=== PATIENT | male | born 1950 | race African-American/Black ===

== ENCOUNTER 2018-06-18 16:56 | Inpatient (IN) | payer OTHER ==
[2018-06-18 17:28] VITALS: BMI 31.0
--- NOTE | 2018-06-18 21:53 | HP ---
CIWA Score Nausea/Vomitin-Mild Nausea/No Vomiting Muscle Tremors: 4-Moderate,w/Arms Extend Anxiety: 3 Agitation: 3 Paroxysmal Sweats: 3 Orientation: 0-Oriented Tacttile Disturbances: 1-Very Mild Itch/Numbness Auditory Disturbances: 0-None Visual Disturbances: 0-None Headache: 0-None Present CIWA-Ar Total Score: 15 - Admission Criteria OASAS Guidelines: Admission for Medically Managed Detox: Requires at least one of the followin. CIWA greater than 12 2. Seizures within the past 24 hours 3. Delirium tremens within the past 24 hours 4. Hallucinations within the past 24 hours 5. Acute intervention needed for co occurring medical disorder 6. Acute intervention needed for co occurring psychiatric disorder 7. Severe withdrawal that cannot be handled at a lower level of care (continued vomiting, continued diarrhea, abnormal vital signs) requiring intravenous medication and/or fluids 8. Admission ROS [facility] Chief Complaint: Alcohol withdrawal symptoms Allergies/Adverse Reactions: Allergies Allergy/AdvReac Type Severity Reaction Status Date / Time No Known Allergies Allergy Verified 06/18/18 21:19 History of Present Illness: 67 years old male with a long history of alcohol dependence is seeking admission to detox. Patient has been to previous detox and reports insignificant period of sobriety. He has medical history of hypertension and anxiety. He denies suicidal ideation at this time. This is his first admission to [facility]. Exam Limitations: No Limitations - Ebola screening Have you traveled outside of the country in the last 21 days: No (N) Have you had contact with anyone from an Ebola affected area: No Have you been sick,other than usual withdrawal symptoms: No Do you have a fever: No - Review of Systems Constitutional: Chills, Malaise, Changes in sleep, Weakness EENT: reports: Nose Congestion Respiratory: reports: No Symptoms reported Cardiac: reports: No Symptoms Reported GI: reports: Nausea, Poor Appetite, Poor Fluid Intake, Abdominal cramping : reports: No Symptoms Reported Musculoskeletal: reports: Back Pain Integumentary: reports: Dryness, Flushing Neuro: reports: Headache, Tremors Endocrine: reports: No Symptoms Reported Hematology: reports: No Symptoms Reported Psychiatric: reports: Mood/Affect Appropiate, Orientated x3, Anxious Other Systems: Reviewed and Negative Patient History - Patient Medical History Hx Anemia: No Hx Asthma: No Hx Chronic Obstructive Pulmonary Disease (COPD): No Hx Cardiac Disorders: No Hx Congestive Heart Failure: No Hx Hypertension: Yes (Norvasc ) Hx Hypercholesterolemia: No Hx Pacemaker: No HX Cerebrovascular Accident: No Hx Seizures: No Hx Dementia: No Hx Diabetes: No Hx Gastrointestinal Disorders: No Hx Liver Disease: No Hx Genitourinary Disorders: No Hx Sexually Transmitted Disorders: No Hx Renal Disease (ESRD): No Hx Thyroid Disease: No Hx Human Immunodeficiency Virus (HIV): No (Negative December 2018) Hx Hepatitis C: No Hx Depression: No Hx Suicide Attempt: No Hx Bipolar Disorder: No Hx Schizophrenia: No Other Medical History: Anxiety - Not on medication - Patient Surgical History Past Surgical History: Yes Hx Neurologic Surgery: No Hx Cataract Extraction: No Hx Cardiac Surgery: No Hx Lung Surgery: No Hx Breast Surgery: No Hx Breast Biopsy: No Hx Abdominal Surgery: No Hx Appendectomy: No Hx Cholecystectomy: No Hx Genitourinary Surgery: No Hx Section: No Hx Orthopedic Surgery: No Other Surgical History: KNEE SURGERY - 2017 Anesthesia Reaction: No - PPD History Previous Implant?: Yes Documented Results: Negative w/o proof Implanted On Prior [facility] Admission?: No PPD to be Administered?: Yes - Reproductive History Patient is a Female of Child Bearing Age (11 -55 yrs old): No (male) - Smoking Cessation Smoking history: Never smoked Have you smoked in the past 12 months: No Aproximately how many cigarettes per day: 0 Hx Chewing Tobacco Use: No Initiated information on smoking cessation: No - Substances Abused Alcohol Route: Oral Frequency: Daily Amount used: LIQUOR- 2 PINTS Age of first use: 27 Date of Last Use: 06/18/18 Family Disease History - Family Disease History Family History: Denies Admission Physical Exam [facility] - Vital Signs Vital Signs: Vital Signs - 24 hr 06/18/18 17:26 Temperature 97.1 F L Pulse Rate 85 Respiratory 18 Rate Blood Pressure 143/86 - Physical General Appearance: Yes: Moderate Distress, Tremorous, Irritable, Sweating HEENTM: Yes: EOMI, Normal ENT Inspection, Normal Voice, JULIETTE Respiratory: Yes: Lungs Clear, Normal Breath Sounds, No Respiratory Distress Neck: Yes: Supple Breast: Yes: Breast Exam Deferred Cardiology: Yes: Regular Rhythm, Regular Rate Abdominal: Yes: Normal Bowel Sounds Genitourinary: Yes: Within Normal Limits Back: Yes: Normal Inspection Musculoskeletal: Yes: Back pain Extremities: Yes: Tremors Neurological: Yes: behavioral instructor II-XII NML intact, Alert, Normal Mood/Affect Integumentary: Yes: Warm Lymphatic: Yes: Within Normal Limits - Diagnostic (1) Hypertension Current Visit: Yes Status: Chronic Qualifiers: Hypertension type: essential hypertension Qualified Code(s): I10 - Essential (primary) hypertension (2) Anxiety Current Visit: Yes Status: Chronic (3) Alcohol dependence, uncomplicated Current Visit: Yes Status: Chronic Cleared for Admission [facility] - Detox or Rehab [facility] Level of Care: Medically Managed Detox Regimen/Protocol: Librium [facility] Breath Alcohol Content Breath Alcohol Content: 0.046 Urine Drug Screen - Results Drug Screen Negative: No Urine Drug Screen Results: MET-Methamphetamine
[2018-06-18] MEDS ORDERED: ACETAMINOPHEN 325 MG TABLET (FP) PO PRN (22:02)
[2018-06-18] MEDS ORDERED: P-EPHED 60MG/TRIPROLIDI 2.5MG TABLET PO PRN (22:02)
[2018-06-18] MEDS ORDERED: guaiFENesin/D-METHORPHAN HB 10 ML UNIT-DOSE CUPS PO PRN (22:02)
[2018-06-18] MEDS ORDERED: MAGNESIUM CITRATE 300 ML BOTTLE PO PRN (22:02)
[2018-06-18] MEDS ORDERED: MAG HYDROX/AL HYDROX/SIMETH 30 ML UNIT-DOSE CUP PO PRN (22:02)
[2018-06-18] MEDS ORDERED: LOPERAMIDE HCL 2 MG CAPSULE PO PRN (22:02)
[2018-06-18] MEDS ORDERED: IBUPROFEN 400 MG TABLET (FP) PO PRN (22:02)
[2018-06-18] MEDS ORDERED: MAGNESIUM HYDROX 2400MG/30ML ORAL SUSPENSION 30 ML CUP PO PRN (22:02)
[2018-06-19] MEDS: MELATONIN 5 MG TABLETS PO PRN ×2 (00:10→22:12)
[2018-06-19] MEDS: chlordiazePOXIDE HCL 25 MG CAPSULE PO SCH ×5 (00:10→22:11)
[2018-06-19] MEDS: amLODIPine BESYLATE 10 MG TABLET (FP) PO SCH (10:13)
[2018-06-19] MEDS: PRENATAL VITAMINS W/ FOLIC ACID TABLET (FP) PO SCH (10:14)
--- NOTE | 2018-06-19 10:35 | PN ---
[facility] CIWA - CIWA Score Nausea/Vomitin Muscle Tremors: 3 Anxiety: 1-Mildly Anxious Agitation: 2 Paroxysmal Sweats: 2 Orientation: 0-Oriented Tacttile Disturbances: 1-Very Mild Itch/Numbness Auditory Disturbances: 0-None Visual Disturbances: 0-None Headache: 1-Very Mild CIWA-Ar Total Score: 12 [facility] Progress Note (SOAP) Subjective: Shakes, anxiety, interrupted sleep Objective: 06/19/18 10:35 Vital Signs 06/19/18 06/19/18 06/19/18 03:30 06:39 09:15 Temperature 97.2 F L 98.1 F Pulse Rate 74 68 Respiratory 17 18 18 Rate Blood Pressure 119/64 125/69 Labs pending Assessment: 06/19/18 10:35 Withdrawal sx Plan: Continue detox
[2018-06-19 10:37] LABS: HEMATOCRIT 42.5 % (35.4-49); MCH 36.5 pg (25.7-33.7); MCHC 35.4 g/dl (32.0-35.9); MEAN CELL VOLUME 103.3 fl (80-96); MEAN PLT VOLUME 8.8 fl (7.5-11.1); PLATELET COUNT 215 K/MM3 (134-434); RBC 4.12 M/mm3 (4.00-5.60); RDW 14.1 % (11.9-15.9); WHITE BLOOD COUNT 7.1 K/mm3 (4.0-10.0)
[2018-06-19 11:14] LABS: ALBUMIN 3.1 g/dl (3.4-5.0); ALK PHOS 42 U/L (45-117); ANION GAP 10 MMOL/L (8-16); BILIRUBIN,TOTAL 0.8 mg/dL (0.2-1); BLOOD UREA NITROGEN 21 mg/dL (7-18); CALCIUM 8.7 mg/dL (8.5-10.1); CHLORIDE 108 mmol/L (98-107); CO2 28 mmol/L (21-32); CREATININE 1.2 mg/dL (0.55-1.3); GLUCOSE,RANDOM 82 mg/dL (74-106); POTASSIUM 3.2 mmol/L (3.5-5.1); SGOT/AST 17 U/L (15-37); SGPT/ALT 28 U/L (13-61); SODIUM 146 mmol/L (136-145)
[2018-06-19] MEDS: THIAMINE HCL 100 MG TABLET (FP) PO SCH (22:11)
[2018-06-19] MEDS: MENTHOL/PHENOL 1 EACH UD MM PRN (22:20)
[2018-06-20] MEDS: chlordiazePOXIDE HCL 25 MG CAPSULE PO PRN (00:34)
[2018-06-20] MEDS: chlordiazePOXIDE HCL 25 MG CAPSULE PO SCH ×2 (06:09→10:08)
[2018-06-20] MEDS: amLODIPine BESYLATE 10 MG TABLET (FP) PO SCH (10:08)
[2018-06-20] MEDS: PRENATAL VITAMINS W/ FOLIC ACID TABLET (FP) PO SCH (10:08)
--- NOTE | 2018-06-20 11:16 | PN ---
[facility] CIWA - CIWA Score Nausea/Vomitin-No Nausea/No Vomiting Muscle Tremors: None Anxiety: 0-No Anxiety, at Ease Agitation: 0-Normal Activity Paroxysmal Sweats: No Perspiration Orientation: 0-Oriented Tacttile Disturbances: 0-None Auditory Disturbances: 0-None Visual Disturbances: 0-None Headache: 0-None Present CIWA-Ar Total Score: 0 [facility] Progress Note (SOAP) Subjective: pt states he is feeling dizzy, thinks that the dose of librium maybe too high. Vital Signs - 24 hr 06/19/18 06/19/18 06/19/18 13:42 17:23 22:07 Temperature 97.0 F L 98.2 F 97.9 F Pulse Rate 88 78 68 Respiratory 18 18 16 Rate Blood Pressure 130/83 131/77 115/56 L 06/20/18 06/20/18 06/20/18 00:30 03:30 06:36 Temperature 96.1 F L Pulse Rate 65 Respiratory 18 18 18 Rate Blood Pressure 127/56 L 06/20/18 09:17 Temperature 98.2 F Pulse Rate 78 Respiratory 16 Rate Blood Pressure 124/82 Laboratory Tests 06/19/18 06/19/18 06/19/18 08:00 08:00 08:00 WBC 7.1 RBC 4.12 Hgb 15.0 Hct 42.5 MCV 103.3 H MCH 36.5 H MCHC 35.4 RDW 14.1 Plt Count 215 MPV 8.8 Sodium 146 H Potassium 3.2 L Chloride 108 H Carbon Dioxide 28 Anion Gap 10 BUN 21 H Creatinine 1.2 Creat Clearance w eGFR > 60 Random Glucose 82 Calcium 8.7 Total Bilirubin 0.8 AST 17 ALT 28 Alkaline Phosphatase 42 L Total Protein 6.0 L Albumin 3.1 L RPR Titer Nonreactive a/p: continue alcohol detox protocol; will decrease dose in 1/2 for librium high MCV- will give B12/folate low K- will give K replacement
[2018-06-20] MEDS ORDERED: chlordiazePOXIDE HCL 25 MG CAPSULE PO SCH (11:18)
[2018-06-20] MEDS: CYANOCOBALAMIN 1,000 MCG TABLET (FP) PO SCH (11:36)
[2018-06-20] MEDS: FOLIC ACID 1 MG TABLET (FP) PO SCH (11:36)
[2018-06-20] MEDS: POTASSIUM CHLORIDE TABS 20 MEQ TABLET.ER (FP) PO SCH (11:36)
[2018-06-20] MEDS: MENTHOL/PHENOL 1 EACH UD MM PRN (11:37)
[2018-06-20] MEDS ORDERED: chlordiazePOXIDE 5 MG CAPSULE PO SCH ×2 (17:00→23:00)
[2018-06-20] MEDS: THIAMINE HCL 100 MG TABLET (FP) PO SCH (22:14)
[2018-06-20] MEDS: chlordiazePOXIDE 5 MG CAPSULE PO SCH (22:14)
[2018-06-20] MEDS: MELATONIN 5 MG TABLETS PO PRN (22:15)
[2018-06-21] MEDS: chlordiazePOXIDE HCL 25 MG CAPSULE PO PRN (00:35)
[2018-06-21] MEDS: chlordiazePOXIDE 5 MG CAPSULE PO SCH ×4 (05:25→22:20)
[2018-06-21] MEDS: PRENATAL VITAMINS W/ FOLIC ACID TABLET (FP) PO SCH (10:31)
[2018-06-21] MEDS: POTASSIUM CHLORIDE TABS 20 MEQ TABLET.ER (FP) PO SCH (10:31)
[2018-06-21] MEDS: amLODIPine BESYLATE 10 MG TABLET (FP) PO SCH (10:32)
[2018-06-21] MEDS: CYANOCOBALAMIN 1,000 MCG TABLET (FP) PO SCH (10:32)
[2018-06-21] MEDS ORDERED: AZITHROMYCIN 250 MG TABLET PO ONE (10:32)
[2018-06-21] MEDS: FOLIC ACID 1 MG TABLET (FP) PO SCH (10:34)
--- NOTE | 2018-06-21 13:15 | PN ---
[facility] Progress Note (SOAP) Subjective: Diarrhea. Patient Reports a Sore Throat that has been getting progressively worse over the last 2-3 days. Patient also reports Nasal Congestion. Patient Denies difficulty Swallowing. Objective: PATIENT A & O X 3, OBSERVED AMBULATING ON UNIT. IN NO ACUTE DISTRESS. PATIENT AFEBRILE. NO ERYTHEMA OR EXUDATE NOTED ON VISUALIZATION OF UPPER PHARYNX. 06/21/18 13:10 Vital Signs Temperature 96.4 F L 06/21/18 13:09 Pulse Rate 75 06/21/18 13:09 Respiratory Rate 18 06/21/18 13:09 Blood Pressure 121/65 06/21/18 13:09 O2 Sat by Pulse Oximetry (%) Laboratory Tests 06/19/18 06/19/18 06/19/18 08:00 08:00 08:00 WBC 7.1 RBC 4.12 Hgb 15.0 Hct 42.5 MCV 103.3 H MCH 36.5 H MCHC 35.4 RDW 14.1 Plt Count 215 MPV 8.8 Sodium 146 H Potassium 3.2 L Chloride 108 H Carbon Dioxide 28 Anion Gap 10 BUN 21 H Creatinine 1.2 Creat Clearance w eGFR > 60 Random Glucose 82 Calcium 8.7 Total Bilirubin 0.8 AST 17 ALT 28 Alkaline Phosphatase 42 L Total Protein 6.0 L Albumin 3.1 L RPR Titer Nonreactive LABS NOTED. Assessment: 06/21/18 13:12 WITHDRAWAL SYMPTOMS. URI. Plan: CONTINUE DETOX. Z-PACK ORDERED. REMAINDER OF PRESCRIPTION SENT TO PATIENT'S PHARMACY ([facility], [place], [place]) FOR FOLLOW-UP AFTER DISCHARGE FROM DETOX UNIT. INCREASE DAILY PO FLUID INTAKE. PRN CEPASTAT LOZENGES AND PRN TYLENOL PO FOR THROAT DISCOMFORT.
--- NOTE | 2018-06-21 13:50 | CONSULT ---
[facility] Psychiatric Consult - Data Date of interview: 06/21/18 Admission source: [facility] Identifying data: This is a 67 years old male, father of four, on pension and SSI support, with a long history of alcohol dependence is seeking admission to detox reporting withdrawal symptoms.. Patient reports mild depressive symptoms, insomnia, denies psychiatric hospitalization history, denies suicidal, homicdial history. Substance Abuse History: Smoking history: Never smoked. Have you smoked in the past 12 months: No. Aproximately how many cigarettes per day: 0. Hx Chewing Tobacco Use: No. Initiated information on smoking cessation: No. - Substances Abused. Alcohol. Route: Oral. Frequency: Daily. Amount used: LIQUOR- 2 PINTS. Age of first use: 27. Date of Last Use: 06/18/18 Medical History: HTN Psychiatric History: Patient reports mild depressive symptoms, insomnia, asking for medications aid for insomnia. Patient reports no psychiatric hospitalizations history, no suicidal, homicidal history. Reports taking prior to admission: Trazodone 50mg po qhs with a good response. Physical/Sexual Abuse/Trauma History: Denies Additional Comment: Trazodone 50mg po qhs Mental Status Exam - Mental Status Exam Alert and Oriented to: Person Cognitive Function: Fair Patient Appearance: Well Groomed Mood: Apprehensive Affect: Appropriate Patient Behavior: Cooperative Speech Pattern: Appropriate Voice Loudness: Normal Thought Process: Goal Oriented Thought Disorder: Being Controlled Hallucinations: Denies Suicidal Ideation: Denies Homicidal Ideation: Denies Insight/Judgement: Fair Sleep: Difficulty falling asleep Appetite: Weight gain Muscle strength/Tone: Normal Gait/Station: Normal Additional Comments: Trazodone 50mg po qhs Psychiatric Findings - Problem List ([place] 1, 2,3) (1) Anxiety disorder Current Visit: Yes Status: Acute (2) Alcohol dependence, uncomplicated Current Visit: Yes Status: Chronic (3) Hypertension Current Visit: Yes Status: Chronic Qualifiers: Hypertension type: essential hypertension Qualified Code(s): I10 - Essential (primary) hypertension - Initial Treatment Plan Initial Treatment Plan: Trazodone 50mg po qhs
[2018-06-21] MEDS: MENTHOL/PHENOL 1 EACH UD MM PRN (17:57)
[2018-06-21] MEDS ORDERED: traZODone HCL 50 MG TABLET (FP) PO SCH (22:00)
[2018-06-21] MEDS: THIAMINE HCL 100 MG TABLET (FP) PO SCH (22:20)
[2018-06-21] MEDS ORDERED: chlordiazePOXIDE HCL 10 MG CAPSULE PO SCH (23:00)
[2018-06-22] MEDS: chlordiazePOXIDE 5 MG CAPSULE PO SCH (06:10)
--- NOTE | 2018-06-22 08:51 | DS ---
[facility] Detox Discharge Summary Admission Date: 06/18/18 Discharge Date: 06/22/18 - History Present History: Alcohol Dependence - Physical Exam Results Vital Signs: Vital Signs Temperature 97.7 F 06/22/18 06:00 Pulse Rate 65 06/22/18 06:00 Respiratory Rate 18 06/22/18 06:00 Blood Pressure 114/60 06/22/18 06:00 O2 Sat by Pulse Oximetry (%) - Treatment Hospital Course: Detox Protocol Followed, Detoxed Safely, Responded well, Discharged Condition Good, Rehab Referral Accepted - Medication Discharge Medications: Ambulatory Orders Amlodipine Besylate [Norvasc -] 10 mg PO DAILY 06/18/18 Azithromycin 250 mg PO DAILY 4 Days #4 tablet 06/21/18 traZODone HCL [Desyrel -] 50 mg PO HS #30 tablet 06/21/18 - Diagnosis (1) Anxiety disorder Current Visit: Yes Status: Acute (2) Alcohol dependence, uncomplicated Current Visit: Yes Status: Chronic (3) Anxiety Current Visit: Yes Status: Chronic (4) Hypertension Current Visit: Yes Status: Chronic Qualifiers: Hypertension type: essential hypertension Qualified Code(s): I10 - Essential (primary) hypertension - AMA Did Patient Leave Against Medical Advice: No (referred to [facility] outpatient )
[2018-06-22 09:12] VITALS: BP 127/81; PULSE 84; TEMP 97.9
== END 2018-06-22 09:33 | disposition home or self-care (01) | DRG 897 ==
LOC: YASAS 16:56 → Y6N 22:36
PROVIDERS: ADMIT Neuromusculoskeletal Medicine & OMM; ATTEND Neuromusculoskeletal Medicine & OMM
PROC: HZ2ZZZZ Detoxification Services for Substance Abuse Treatment (ICD-10-PCS; principal; 2018-06-18)
DX: F10.230 Alcohol dependence with withdrawal, uncomplicated (principal); F41.9 Anxiety disorder, unspecified; I10 Essential (primary) hypertension; J06.9 Acute upper respiratory infection, unspecified
CPT/HCPCS: 36415; 80053; 85027; 86593